=== PATIENT | male | born 2000 | race Caucasian/White ===

== ENCOUNTER 2023-03-09 20:35 | Emergency (ER) | payer SELFPAY ==
[~2023-03-09] VITALS: Ht 170.2 cm; Wt 60.0 kg
[2023-03-09] MEDS ORDERED: LIDOCAINE HCL 1% 20ML VIAL (Pyxis) INJ INFIL ONE (21:15)
[2023-03-09] MEDS ORDERED: IBUP-2029 MT (23:38)
[2023-03-09] MEDS ORDERED: AMOX1TAB16 MT (23:38)
[2023-03-10 00:10] VITALS: BP 108/55
== END 2023-03-10 00:20 | disposition home or self-care (01) ==
LOC: EDBD 20:35 → ER 20:35
DX: S51.812A Laceration without foreign body of left forearm, initial encounter (principal); W25.XXXA Contact with sharp glass, initial encounter; Y93.89 Activity, other specified; Y92.89 Other specified places as the place of occurrence of the external cause; Y99.8 Other external cause status
CPT/HCPCS: 12002; 99283; J3490; Z7610; 99282